=== PATIENT | male | born 1975 | race Caucasian/White ===

== ENCOUNTER 2019-10-19 20:33 | Observation (INO) | payer OTHER ==
[~2019-10-19] VITALS: Ht 180.3 cm; Wt 164.7 kg
--- NOTE | 2019-10-20 00:15 | NUR ---
PT ADMITTED TO CCU ROOM 126 FOR DKA WITH NEW DIABETES DIAGNOSIS. PT IS ALERT AND ORIENTED, TRANSFERS SELF TO BED FROM [facility]. DENIES PAIN OR NEEDS AND IS ABLE TO ANSWER ADMIT QUESTIONS. PLAN TO START INSULIN GTT AND IVF EXPLAINED TO PT, QUESTIONS ANSWERED.
--- NOTE | 2019-10-20 01:37 | NUR ---
INSULIN GTT INFUSING AT 5UNITS/HR. PT AWAKE IN BED ON HIS PHONE, FAN PROVIDED FOR COMFORT NO FURTHER NEEDS. WILL CALL NEXT TIME HE NEEDS TO VOID
--- NOTE | 2019-10-20 03:15 | NUR ---
AWAKENS FOR BLOOD SUGAR CHECK, NO REQUESTS, BACK TO SLEEP.
--- NOTE | 2019-10-20 04:15 | NUR ---
ASSESSMENT/BLOOD SUGAR CHECK DONE. PT DENIES NEEDS-BACK TO SLEEP.
--- NOTE | 2019-10-20 08:08 | NUR ---
INSULIN GTT TURNED UP TO 8.4 UNITS/HR FROM 6.3. PATIENT AWAKE. PT HUNGRY AND REQUESTING FOOD. PATIENT ASKING WHEN "WILL THIS BE ALL OVER AND I CAN HOME?" EDUCATION PROVIDED TO PATIENT THAT WE NEED TO GET HIS BLOOD SUGARS BETTER CONTROLLED BEFORE HE GOES HOME. PT STATES HE HAS A SLIGHT HEADACHE AND HIS LEFT LEG IS BOTHERING HIM WITH HIS "USUAL PAIN."
--- NOTE | 2019-10-20 09:58 | NUR ---
DR. ANDERSON IN ROOM TO SEE PATIENT AT THIS TIME. PLAN IS TO SWITCH PATIENT TO SLIDING SCALE INSULIN, GIVE LANTUS, AND THEN TRANSFER PATIENT TO THE MEDICAL FLOOR AFTER INSULIN GTT OFF.
--- NOTE | 2019-10-20 11:30 | NUR ---
REPORT GIVEN TO TU ESTEVEZ ON MED/SURG. PATIENT TRANSFERRED TO ROOM 114 AND ABLE TO AMBULATE TO NEW ROOM. WRITTEN EDUCATION PROVIDED.
--- NOTE | 2019-10-20 11:32 | NUR ---
INSULIN GTT TURNED OFF AT THIS TIME. PT GIVEN MENU AND EDUCATED ON NEW DIET ORDER FOR 75 GM CONSISTENT CARB.
--- NOTE | 2019-10-20 11:50 | NUR ---
ARRIVED TO FLOOR. ABLE TO AMBULATE TO ROOM. ASSESSMENT DONE. VITALS DONE AND STABLE. CALL LIGHT IN REACH. BLOOD SUGAR TAKEN. PT DEMONSTRATED INSULIN ADMINSTRATION.
--- NOTE | 2019-10-20 14:02 | NUR ---
PATIEN RESTING IN BED. VITAL SIGNS AND I&O DONE. CALL LIGHT WITHIN REACH. NO OTHER NEEDS AT THIS TIME
--- NOTE | 2019-10-20 16:01 | NUR ---
PT SITTING UP IN CHAIR. REPORTING 7/10 HEADACHE. TYLENOL ADMINSTERED. WATER REFRESHED. DENEIS FURTHER NEEDS.
--- NOTE | 2019-10-20 17:03 | NUR ---
PATIENT SITTING UP IN BED. VITAL SIGNS AND I&O DONE. HIGH DYASTOLIC BLOOD PRESSURE. RN NOTIFIED. ICE WATER GIVEN. CALL LIGHT WITHIN REACH. NO OTHER NEEDS AT THIS TIME
--- NOTE | 2019-10-20 18:14 | NUR ---
PT HAD GOOD DAY, TRANSFER FROM CCU. AMBULATING WELL. INJECTING INSULIN WITH NO INSRUCTIONS. EATING AND DRINKING WELL. URINE OUTPUT QS. SALINE LOCKED.
--- NOTE | 2019-10-20 19:00 | NUR ---
SHIFT REPORT RECIEVED FROM ZENAIDA MAE. PT SITTING IN ROOM, WATCHING TV. IC WATER PROVIDED. NO OTHER NEEDS. CALL LIGHT IN REACH.
--- NOTE | 2019-10-20 22:14 | NUR ---
VITALS AND I&OS DONE AND CHARTED. ALSO BLOOD SUGAR DONE AND CHARTED. INFORMED TU HAWKINS OF RESULTS. FRESH ICE WATER GIVEN , EMPTIED URINAL TWICE. BEDSIDE TABLE AND CALL LIGHT IN REACH.
--- NOTE | 2019-10-20 22:29 | NUR ---
ASSESSMENT COMPLETED. PT EDUCATION PROVIDED CONCERNING INSULIN MANAGEMENT AND INJECTION. CBG 262, 7 UNITS INSULIN PROVIDED. IV WNL, CDI, FLUSHED WELL. LUNGS CLEAR IN ALL LOBES. PT DENIES ANY PAIN OR ANY OTHER NEEDS. CALL LIGHT IN REACH. FAMILY IN ROOM.
--- NOTE | 2019-10-20 23:56 | NUR ---
PT RESTING IN BED, WATCHING TV. NO NEEDS AT THIS TIME. CALL LIGHT IN REACH.
--- NOTE | 2019-10-21 02:03 | NUR ---
PT RESTING IN BED, EYES CLOSED. RR EVEN, UNLABORED. CALL LIGHT IN REACH.
--- NOTE | 2019-10-21 06:05 | NUR ---
ASSESSMENT, VS AND I&O COMPLETED. LUNGS CLEAR. BOWEL TONES ACTIVE. A&O X4. ICE WATER PROVIDED. NO OTHER NEEDS. CALL LIGHT IN REACH.
--- NOTE | 2019-10-21 06:31 | NUR ---
PT SLEPT MOST THE NIGHT. CBG 262, 7 UNITS INSULIN PROVIDED. PT TOLERATED DIET WELL. IV WNL, FLUSHED WELL. NO PAIN OR NAUSEA REPORTED. UOS, VSS. LUNGS CLEAR IN ALL LOBES. BOWEL TONES ACTIVE.
--- NOTE | 2019-10-21 07:26 | NUR ---
REPORT RECEIVED. PT IN BED. CALL LIGHT IN REACH.
--- NOTE | 2019-10-21 08:33 | NUR ---
PATIENT RESTING IN BED. WITHE BOARD UPDATED. PATIENT REFUSED TO TAKE A SHOWER TODAY. CALL LIGHT WITHIN REACH. NO OTHER NEEDS AT THIS TIME
--- NOTE | 2019-10-21 09:00 | NUR ---
BREAKFAST GIVEN. ASSESSMENT DONE. PT DEMONSTRATED PROPER INSULIN ADMINSTRATION. SLIDIING SCALE DISCUSSED.
--- NOTE | 2019-10-21 09:00 | NUR ---
PATIENT SITTING UP IN BED. VITAL SIGNS AND I&O DONE. CALL LIGHT WITHIN REACH. NO OTHER NEEDS AT THIS TIME
[2019-10-21] MEDS ORDERED: BASAGLAR K100 UNIT/1 SUB-Q (10:13)
[2019-10-21] MEDS ORDERED: NOVOLOG FL100 UNIT/1 SUB-Q (10:15)
[2019-10-21] MEDS ORDERED: PEN NEEDLE1 EAC2 MISC (10:15)
--- NOTE | 2019-10-21 11:46 | NUR ---
PATIENT SITTING UP IN CHAIR. FINAL VITAL SIGNS WERE OBTAINED PRIOR TO DISCHARGE FROM THE UNIT.
--- NOTE | 2019-10-21 12:08 | NUR ---
DISCHARGE INSTRUCTIONS AND FOLLOW UP PROVIDED. INSUIN SLIDDING SCALE DISCUSSED AGAIN. PT COMFORTSABLE CHECKING BLOOD SUGAR AND ADMINSITERING INSULIN.
== END 2019-10-21 11:45 | disposition home or self-care (01) ==
LOC: ED 20:33 → CCU 20:35 → MS 10-20 11:45
PROVIDERS: ADMIT Internal Medicine
DX: E11.10 Type 2 diabetes mellitus with ketoacidosis without coma (principal); E66.01 Morbid (severe) obesity due to excess calories; Z79.4 Long term (current) use of insulin
CPT/HCPCS: 36415; 80048; 80053; 81001; 82010; 82800; 83036; 83519; 85025; 86341; 96374; 99284-25; C9803; G0378; J1815; J3480; J7030; U0002

== ENCOUNTER 2024-11-05 12:03 | Emergency (ER) | payer OTHER ==
[~2024-11-05] VITALS: Ht 180.3 cm; Wt 176.0 kg
[~2024-11-05 12:03] MED LIST: AMLODIPINE BES2.5 MG PO; BASAGLAR K100 UNIT/1 SUB-Q; CEPHALEXIN500 M1 PO; DICLOFENAC35 MG PO; DICYCLOMINE HCL20 MG PO; LISINOPRIL20 MG PO; METFORMIN HCL500 M1 PO; NOVOLOG FL100 UNIT/1 SUB-Q; ONDANSETRON ODT4 MG PO; PEN NEEDLE1 EAC2 MISC; TRULICITY3 MG/0.5 M SQ; VICTOZA 2-0.6 MG/0.1 SUB-Q
[2024-11-05 12:24] LABS: BASOPHILS 0.7 % (0.2-1.2); EOSINOPHILS 4.9 % (0.8-7.0); LYMPHOCYTES 27.4 % (21.8-53.1); MCH 28.4 PG (25.7-32.2); MCHC 33.6 g/dL (32.3-36.5); MCV 84.4 fL (79.0-92.2); MONOCYTES 7.1 % (5.3-12.2); NEUTROPHILS 59.2 % (34.0-67.9); RBC 4.55 M/uL (4.63-6.08)
[2024-11-05] MEDS ORDERED: SODIUM CHLORIDE 0.9% 1,000 ML IV PRN (12:30)
[2024-11-05 12:41] LABS: INR 1.02 (0.80-1.30); PROTIME 13.0 Sec (11.2-14.2)
[2024-11-05 12:47] LABS: ALT (SGPT) 31.0 U/L (14-59); AST (SGOT) 18.0 U/L (15-37); GLOMERULAR FILTRATION RATE,EST 106.0 mL/min (>60); PROTEIN, TOTAL 8.8 g/dL (6.4-8.2); UREA NITROGEN 12.0 mg/dL (7-18)
[2024-11-05 13:01] LABS: LACTIC ACID, BLOOD 3.3 mmol/L (0.4-2.0)
[2024-11-05 13:35] LABS: BLOOD/HGB, URINE NEGATIVE (Negative); KETONE, URINE NEGATIVE (Negative); LEUK ESTERASE, URINE NEGATIVE (negative); NITRITE, URINE NEGATIVE (negative)
[2024-11-05 14:37] LABS: LACTIC ACID, BLOOD 2.0 mmol/L (0.4-2.0)
[2024-11-05] MEDS ORDERED: GLIPIZIDE ER10 MG PO (15:35)
[2024-11-05] MEDS ORDERED: PIOGLITAZONE HC15 MG PO (15:35)
[2024-11-05] MEDS ORDERED: ROSUVASTATIN CA20 MG PO (15:36)
[2024-11-05] MEDS ORDERED: LOSARTAN-HCTZ1 EAC1 PO (15:36)
[2024-11-05] MEDS ORDERED: PRIMIDONE50 MG PO (15:37)
[2024-11-05 16:00] VITALS: BP 144/75
[2024-11-05] MEDS ORDERED: ONDANSETRON 4 MG TAB ODT SL ONE (16:15)
--- NOTE | 2024-11-06 10:52 | EKG ---
[facility] [address] [place] [address] Signed Sinus tachycardia Abnormal ECG When compared with ECG of 04-AUG-2022 16:42, No significant change was found Confirmed by Jaya Martin DO ([id number]) on 11/06/2024 10:52:33 AM Electronically Signed By: JAYA MARTIN DO 11/06/24 1052 PATIENT NAME: LISA RUBALCAVA Electrocardiogram DATE OF : 79 PHYSICIAN: JAYA MARTIN DO REPORT #: [id number] REPORT IS CONFIDENTIAL AND NOT TO BE RELEASED WITHOUT AUTHORIZATION
== END 2024-11-05 16:06 | disposition home or self-care (01) ==
LOC: ED 12:03
PROVIDERS: Emergency Medicine
DX: R42 Dizziness and giddiness (principal); I10 Essential (primary) hypertension; E11.9 Type 2 diabetes mellitus without complications; Z79.84 Long term (current) use of oral hypoglycemic drugs; Z79.899 Other long term (current) drug therapy
CPT/HCPCS: 36415; 71045; 80053; 81003; 82803; 83036; 83605; 85025; 85610; 85730; 87040; 93005; 93010; 96365; 99285-25; A9270; J0696